=== PATIENT | male | born 1995 | race Caucasian/White ===

== ENCOUNTER 2017-04-24 13:18 | Emergency (ER) | payer OTHER ==
[~2017-04-24] VITALS: Ht 175.3 cm; Wt 72.5 kg
[2017-04-24 13:23] VITALS: TEMP 36.3; Ht 175.3 cm; Wt 72.5 kg
[2017-04-24] MEDS ORDERED: PROCHLORPERAZINE 5 MG/ML 2 ML VIAL IV STA (13:37)
[2017-04-24] MEDS ORDERED: DiphenhydrAMINE HCL 50 MG/ML VIAL IV STA (13:37)
[2017-04-24] MEDS ORDERED: KETOROLAC TROMETHAMINE 30 MG/ML VIAL IV STA (13:37)
--- NOTE | 2017-04-24 13:42 | EMERGENCY ROOM VISIT NOTE ---
History First contact with patient: 13:27 Chief Complaint: HEADACHE Stated Complaint: OPTICAL MIGRAINE History of Present Illness The patient is a 21 year old male who presents to the Emergency Room with complaints of a migraine headache. The patient has a history of migraines with aura. He reports that he woke up this morning with a loss of his peripheral vision, which is his usual aura. He then developed a severe headache which he rates an 8/10. The headache is located in the front of his head. He took Advil without relief. He has had associated nausea and vomiting. He states this headache is typical of his migraines. The patient is from [place] and has previously seen a neurologist who diagnosed him with the migraines. Imaging studies have been normal. The patient reports he has had some sinus congestion and a feeling of clogged ears recently, but denies any significant illness or fevers/chills. He denies neck pain/stiffness, numbness, weakness, confusion, blurred vision or slurred speech. Review of Systems A complete 10 point review of systems was reviewed with the patient with pertinent positives and negatives as per history of present illness. All else were negative. Social History Smoking Status: Never Smoker Current/Historical Medications No Active Prescriptions or Reported Meds Physical Exam Vital Signs Date Time Temp Pulse Resp B/P (MAP) Pulse Ox O2 Delivery O2 Flow Rate FiO2 04/24/17 16:37 88 18 129/70 97 04/24/17 15:46 91 20 114/70 98 Room Air 04/24/17 14:01 55 18 141/58 100 Room Air 04/24/17 13:23 36.3 66 20 118/76 100 Room Air Physical Exam VITALS: Vitals are noted on the nurse's note and reviewed by myself. Vital signs stable. GENERAL: This is a 21-year-old male, in no acute distress, nondiaphoretic, well- developed well-nourished. HEAD: Normocephalic atraumatic. EARS: External auditory canals clear, tympanic membranes pearly elliott without erythema or effusion bilaterally. EYES: Pupils equal round and reactive to light and accommodation. Conjunctivae without injection, sclerae without icterus. Extraocular movements intact. NOSE: Patent, turbinates without inflammation or discharge. MOUTH: Mucous membranes moist. Tonsils are not enlarged. Pharynx without erythema or exudate. NECK: Supple without nuchal rigidity. No lymphadenopathy. No meningismus. HEART: Regular rate and rhythm without murmurs gallops or rubs. LUNGS: Clear to auscultation bilaterally without wheezes, rales or rhonchi. MUSCULOSKELETAL: Full range of motion in all extremities. Strength 5/5 throughout. NEURO: Patient was alert and oriented to person place and time. Normal sensation to light and sharp touch. No focal neurological deficits. Medical Decision & Procedures Medications Administered Medications (Trade) Dose Ordered Sig/Chava Route Start Time Stop Time Status Last Admin Dose Admin Ketorolac Tromethamine (Toradol Inj) 30 mg NOW STAT IV 04/24/17 13:37 04/24/17 13:39 DC 04/24/17 13:56 30 MG Diphenhydramine HCl (Benadryl Inj) 25 mg NOW STAT IV 04/24/17 13:37 04/24/17 13:39 DC 04/24/17 13:55 25 MG Prochlorperazine Edisylate (Compazine Inj) 10 mg NOW STAT IV 04/24/17 13:37 04/24/17 13:39 DC 04/24/17 13:55 10 MG Morphine Sulfate (MoRPHine SULFATE INJ) 4 mg NOW STAT IV 04/24/17 14:35 04/24/17 14:36 DC 04/24/17 15:56 4 MG Dexamethasone Sodium Phosphate (Decadron Inj) 10 mg NOW STAT IV 04/24/17 14:35 04/24/17 14:36 DC 04/24/17 15:56 10 MG ED Course The patient was evaluated as above. IV access was obtained. Patient was medicated with 30 mg Toradol, 10 mg Compazine and 25 mg Benadryl. Patient was reevaluated and stated his headache is now a 5/10. 4 mg morphine and 10 mg Decadron were ordered. Patient was reevaluated and was sleeping. He was woken up and states he is feeling much better. Discharge instructions were reviewed with the patient. The patient verbalized understanding of my assessment and treatment plan and was discharged home in good condition. Medical Decision The differential diagnosis includes acute intracranial bleed, meningitis, encephalitis, mass or mass effect, sinusitis, infection, tumor, headache, temporal arteritis and carbon monoxide exposure, and migraine. The patient is a 21-year-old male who presents today complaining of a migraine headache with aura. The patient does have a history of migraine headaches and has a neurologist at home which he sees for these. He reports this is similar to his typical migraines and there is nothing concerning or different about the headache he has today. There is no evidence of meningitis or encephalitis on exam. There is nothing to suggest a subarachnoid hemorrhage. Patient was initially treated with Toradol, Compazine and Benadryl with some relief. He was then given a dose of morphine and Decadron with significant relief. He requested discharge home. I recommended that he sleep for the rest of the day and follow-up with his primary care provider or neurologist as needed. The patient was agreeable to this treatment plan. Based on the patient's presentation and work up, I feel the patient is stable for outpatient treatment. The patient was educated to return to the emergency department for any worsening of their current condition or new/concerning symptoms. He will follow up with his primary care provider/neurologist as needed. Medication Reconcilliation Current Medication List: was personally reviewed by me Blood Pressure Screening Patient's blood pressure: Normal blood pressure Impression Primary Impression: Migraine Departure Information Dispostion Home / Self-Care Condition GOOD Prescriptions No Active Prescriptions or Reported Meds Referrals No Doctor, Assigned (PCP) Patient Instructions My [facility] Additional Instructions You have been treated in the Emergency Department for a Headache. You have received pain medicine in the emergency department which impairs your ability to operate a vehicle. It is illegal for you to drive after receiving these medicines. For pain control, you can use the following [id number] medicines (if >12 yo): - Regular strength (325mg/tab) Tylenol (acetaminophen) 2 tabs every 4-6 hours as needed. Do not exceed 12 tablets in a 24 hour period. Avoid taking more than 4 grams (4000 mg) of Tylenol per day. This includes any other sources of acetaminophen you may take on a regular basis. - Regular strength (200 mg/tab) Advil (ibuprofen) 1-2 tabs every 4-6 hours as needed. Do not exceed a dose of 3200 mg per day. You should relax in a quiet, dark place for the rest of the day. Avoid any possible triggers including: cigarette smoke, caffeine, nicotine, chocolate, wine, beer, loud noises or music, or bright lights. You should schedule a follow-up appointment in 2-3 days with your Primary Care Provider or established Neurologist for further evaluation and treatment of your Headache. Return to the Emergency Department if your current symptoms worsen despite treatment course outlined above, or if you develop any of the following symptoms : intractable pain despite aforementioned treatment course, visual disturbances , loss of vision, unilateral weakness or facial drooping, slurring of speech, loss of coordination, or loss of consciousness. Problem Qualifiers Primary Impression: Migraine Migraine type: with aura Status migrainosus presence: without status migrainosus Intractability: not intractable Qualified Codes: G43.109 - Migraine with aura, not intractable, without status migrainosus
[2017-04-24] MEDS ORDERED: DEXAMETHASONE SOD INJ 4 MG/ML VIAL IV STA (14:35)
[2017-04-24] MEDS ORDERED: MoRPHine SULFATE 4 MG/ML 1 ML CARP\\VIAL IV STA (14:35)
[2017-04-24 16:37] VITALS: BP 129/70; PULSE 88; O2SAT 97
== END 2017-04-24 16:37 | disposition home or self-care (01) ==
LOC: C.EDB 13:19
DX: G43.109 Migraine with aura, not intractable, without status migrainosus (principal)